=== PATIENT | female | born 1945 | race African-American/Black ===

== ENCOUNTER 2023-08-04 19:21 | Emergency (ER) | payer OTHER ==
[~2023-08-04] VITALS: Ht 167.6 cm; Wt 86.5 kg
[2023-08-04 19:24] VITALS: O2SAT 99
[2023-08-04] MEDS ORDERED: SODIUM CHLORIDE 0.9% 1,000 ML IV ONE (19:45)
[2023-08-04 20:57] LABS: HEMATOCRIT. 25.9 % (36.0-48.0); HEMOGLOBIN. 7.9 g/dL (12.0-16.0); MEAN CORPUSCULAR HEMOGLOBIN 27.4 pg (28.0-32.0); MEAN CORPUSCULAR HGB CONC 30.5 g/dL (31.0-37.0); MEAN CORPUSCULAR VOLUME 89.9 fL (81.0-99.0); MEAN PLATELET VOLUME 9.7 fl (7.4-10.4); PLATELET 262 x1000/uL (130-400); RED BLOOD CELL COUNT 2.89 mill/uL (4.2-5.4); RED CELL DISTRIBUTION WIDTH 16.6 % (11.6-14.6); WHITE BLOOD COUNT 8.2 x1000/uL (4.5-11.0)
[2023-08-04 21:00] LABS: DIFFERENTIAL COMMENT 1
[2023-08-04 21:06] LABS: CHLORIDE 121 mEq/L (98-107); INDEX HEMOLYSI 1 (1-3); INDEX ICTERIC 1 (1-4); INDEX LIPEMIC 1 (1-3); POTASSIUM 5.5 mEq/L (3.5-5.1); SODIUM 140 mEq/L (136-145)
[2023-08-04 21:18] LABS: ALANINE AMINOTRANSFERASE 22 IU/L (13-61); ASPARTATE AMINOTRANSFERASE 12 IU/L (15-37); BILIRUBIN TOTAL 0.2 mg/dL (0.1-1.0); CALCIUM 8.9 mg/dL (8.5-10.1); CARBON DIOXIDE 11 mEq/L (21-32); CREATININE 1.8 mg/dL (0.6-1.3); GLUCOSE 162 mg/dL (70-105); TROPONIN I HIGH SENSITIVITY 18 ng/L (<54)
[2023-08-04 21:23] LABS: UREA NITROGEN BLOOD 88 mg/dL (7-21)
[2023-08-05 03:43] VITALS: BP 116/38; PULSE 86; RESP 15; TEMP 98.7
[2023-08-05 05:33] LABS: PLATELET ESTIMATE NORMAL
== END 2023-08-05 03:49 | disposition short-term general hospital (02) ==
LOC: ER 19:21
DX: A41.9 Sepsis, unspecified organism (principal); R65.20 Severe sepsis without septic shock; I10 Essential (primary) hypertension
CPT/HCPCS: 99291; 74176; 96360; 96361; 80053; 82010; 83605; 85025; 84484; 36415; 84145; 71045; 93005; J7030; 99285